=== PATIENT | female | born 1960 | race Caucasian/White ===

== ENCOUNTER → 2018-01-24 | Outpatient (CLI) | payer OTHER | LOC: RAD 01-21 02:53 | DX: Z12.31 Encounter for screening mammogram for malignant neoplasm of breast (principal) ==

== ENCOUNTER → 2019-04-01 | Outpatient (CLI) | payer BC, OTHER ==
[2019-04-01 11:53] LABS: MCH 30.5 pg (26.0-34.0); MCHC 33.3 g/dL (28.0-37.0); MCV 91.7 fL (80.0-100.0); RBC 5.89 mil/uL (4.20-5.00); RDW 14.9 % (10.5-14.5); WBC 7.1 thou/uL (4.0-11.0)
[2019-04-01 12:29] LABS: CALCIUM 9.4 mg/dL (8.5-10.1); CREATININE 0.7 mg/dL (0.6-1.0); POTASSIUM 4.5 mmol/L (3.5-5.1)
== END ==
LOC: RAD 10:53
PROVIDERS: Internal Medicine Pulmonary Disease
DX: J44.9 Chronic obstructive pulmonary disease, unspecified (principal); J96.21 Acute and chronic respiratory failure with hypoxia; E66.01 Morbid (severe) obesity due to excess calories; Z68.38 Body mass index [BMI] 38.0-38.9, adult; Z72.0 Tobacco use

== ENCOUNTER → 2019-04-03 | Outpatient (CLI) | payer BC, OTHER ==
--- NOTE | 2019-04-05 21:35 | SLE ---
[facility] [place] [address] POLYSOMNOGRAPHY STUDY Name: AMBER BERNAL Room #: REG [facility]#: [id number] Admission: 04/03/19 Attend Phys: Javi Johnson MD Discharge: Date of : 62 Report #: [id number] THIS REPORT FOR: //name// CC: Javi Pagan MD DATE OF SERVICE: 04/04/2019 REFERRING PHYSICIAN: Dr. Delon Pagan. The patient is a 58 years old who weighs 208 pounds with a BMI of 38. The patient's [place] score was 21. The patient had a home sleep study and was found to have moderate JULIANA along with worsening hypoxia. The patient was referred back for in-lab CPAP titration study. During the night study, the patient spent 409 minutes in bed and slept for 349 minutes with a sleep efficiency of 85%. Sleep latency was normal with a REM latency of 68.5 minutes. Overall, sleep architecture showed a normal stage 1 and stage 2 sleep, increased slow wave and increased REM sleep. EKG monitoring revealed an average heart rate of 93 beats per minute with a maximum of 111 beats per minute. No sustained arrhythmias observed. PLMs were seen at an index of 17 per hour with only 1.9 per hour caused EEG arousals. The patient was started on CPAP at a pressure of 8 cm of water and titrated up to 14 cm of water. At this final pressure, the patient slept for 77 minutes including 24 minutes of supine REM sleep. The patient's AHI was reduced to 1.6 per hour and oxygen saturations remained in the mid to high 80s with a lowest saturation of 79%. IMPRESSION: 1. Moderate sleep apnea diagnosed by previous home sleep study. 2. Nocturnal hypoxia which did not completely resolve while on therapeutic pressure and may suggest hypoventilation. 3. Mild to moderate PLMs. RECOMMENDATIONS: 1. CPAP at a pressure of 14 cm water along with 1 liter of supplemental oxygen should be used on a nightly basis. 2. Follow up in 4-6 weeks to assess compliance with CPAP and to document clinical improvement. 3. Weight loss is strongly advised. 4. Avoid SNOW RANGER depressants. [facility] [address] [place] [address] POLYSOMNOGRAPHY STUDY Name: AMBER BERNAL AMA Room #: REG [facility].#: [id number] Admission: 04/03/19 Attend Phys: Javi Johnson MD Discharge: Date of : 62 Report #: [id number] 5. Cautioned regarding driving until symptoms of sleep apnea resolve with the use of CPAP. 6. PLMs does not need to be treated unless the patient has symptoms of restless legs during the day. 7. Rule out any cardiac or pulmonary etiologies of nocturnal hypoxia. <ELECTRONICALLY SIGNED> By: Javi Johnson MD 04/05/19 [id number] [id number] Javi Johnson MD /nt
== END ==
LOC: SLEEPLAB 11:05
DX: G47.30 Sleep apnea, unspecified (principal); G47.34 Idiopathic sleep related nonobstructive alveolar hypoventilation

== ENCOUNTER → 2019-04-06 | Outpatient (CLI) | payer BC, OTHER ==
--- NOTE | 2019-04-06 15:08 | 2DMMODE ---
[facility] [address] [place] [address] 2 D/M-MODE ECHOCARDIOGRAM Name: AMBER BERNAL AMA Room #: REG [facility]#: [id number] Admission: 04/06/19 Attend Phys: Delon Pagan MD Discharge: Date of : 62 Report #: [id number] THIS REPORT FOR: //name// APPROVED REPORT Study performed: 04/06/2019 14:12:04 EXAM: Comprehensive 2D, Doppler, and color-flow Echocardiogram Patient Location: Out-Patient Room #: Echo lab 2 Status: routine BSA: 1.94 HR: 120 bpm BP: 128/76 mmHg Rhythm: Tachycardia Other Information Study Quality: Good Indications COPD Dyspnea 2D Dimensions RVDd: 35.31 mm IVSd: 8.27 (7-11mm) LVOT Diam: 18.60 (18-24mm) LVDd: 41.75 mm PWd: 8.46 (7-11mm) Ascending Ao: 27.03 (22-36mm) LVDs: 25.98 (25-40mm) Aortic Root: 27.82 mm IVC: 18.00 mm Volumes Left Atrial Volume (Systole) Single Plane 4CH: 47.61 mL Single Plane 2CH: 33.41 mL LA ESV Index: 22.00 mL/m2 Aortic Valve AoV Peak Shiv.: 2.20 m/s AO Peak Gr.: 19.35 mmHg LVOT Max P.11 mmHg LVOT Max V: 1.59 m/s RENEE Vmax: 1.96 cm2 Pulmonary Valve PV Peak Shiv.: 1.38 m/s PV Peak Gr.: 7.59 mmHg [facility] [address] [place] [address] 2 D/M-MODE ECHOCARDIOGRAM Name: AMBER BERNAL Room #: REG CL [facility]#: [id number] Admission: 04/06/19 Attend Phys: Delon Pagan MD Discharge: Date of : 62 Report #: [id number] Tricuspid Valve TR Peak Shiv.: 2.99 m/s TR Peak Gr.: 35.84 mmHg PA Pressure: 41.00 mmHg Left Ventricle The left ventricle is normal size. There is normal left ventricular wall thickness. Left ventricular systolic function is hyperdynamic. LVEF is >70%. This study is not technically sufficient to allow evaluation of the LV diastolic function due to tachycardia. Right Ventricle The right ventricle is normal size. The right ventricular systolic function is normal. Atria The left atrium size is normal. The right atrium size is normal. Aortic Valve The aortic valve is normal in structure. No aortic regurgitation is present. There is no aortic valvular stenosis. Mitral Valve The mitral valve is normal in structure. There is no mitral valve regurgitation noted. No evidence of mitral valve stenosis. Tricuspid Valve The tricuspid valve is normal in structure. There is trace tricuspid regurgitation. Estimated PAP 40 mmHg. Pulmonic Valve The pulmonary valve is normal in structure. There is no pulmonic valvular regurgitation. Great Vessels The aortic root is normal in size. IVC is normal in size and collapses >50% with inspiration. Pericardium There is no pericardial effusion. <Conclusion> The left ventricle is normal size. There is normal left ventricular wall thickness. Left ventricular systolic function is hyperdynamic. [facility] [address] [place] [address] 2 D/M-MODE ECHOCARDIOGRAM Name: AMBER BERNAL [facility] Room #: REG COUNT INCLUDES THE [facility]#: [id number] Admission: 04/06/19 Attend Phys: Delon Pagan MD Discharge: Date of : 62 Report #: [id number] The right ventricle is normal size. The left atrium size is normal. The aortic valve is normal in structure. The mitral valve is normal in structure. There is trace tricuspid regurgitation. Estimated PAP 40 mmHg. <ELECTRONICALLY SIGNED> By: Kam Nogueira MD 04/06/19 1508 [id number] Kam Nogueira MD /INF
[2019-04-06 15:44] LABS: BE(vivo) 4.5 mmol/L (-2 to +3); HCO3 31.8 mmol/L (22.0-26.0); pH 7.372 (7.360-7.450); sO2 80.6 % (92.0-98.0)
[2019-04-06 15:45] LABS: PO2 46.6 mmHg (80.0-100.0)
== END | disposition home or self-care (01) ==
LOC: PUL 09:08
PROVIDERS: Internal Medicine Pulmonary Disease
DX: R06.00 Dyspnea, unspecified (principal); I07.1 Rheumatic tricuspid insufficiency; J44.9 Chronic obstructive pulmonary disease, unspecified